=== PATIENT | female | born 1970 | race Caucasian/White ===

== ENCOUNTER 2017-12-13 12:46 | Emergency (ER) | payer BC ==
[~2017-12-13] VITALS: Ht 167.6 cm; Wt 127.9 kg
[~2017-12-13 12:46] MED LIST: ACETAMINOPHEN-1 EAC1 PO; CLEOCIN HCL150 MG PO; FUTURO RESTORI1 EACH MISCELL; IBUPROFEN 800800 M1 PO; NOLVADEX20 MG PO; SERTRALINE HCL50 MG PO; VITAMIN D2000 UNIT PO
[2017-12-13] MEDS ORDERED: ACETAMINOPHEN-1 EAC1 PO (13:51)
[2017-12-13] MEDS ORDERED: IBUPROFEN 800800 M1 PO (13:52)
[2017-12-13 14:05] VITALS: BP 138/88
== END 2017-12-13 14:06 | disposition home or self-care (01) ==
LOC: M.ERS 12:46
DX: M25.532 Pain in left wrist (principal); M86.9 Osteomyelitis, unspecified; Z85.3 Personal history of malignant neoplasm of breast; Z88.1 Allergy status to other antibiotic agents; Z88.0 Allergy status to penicillin

== ENCOUNTER 2018-09-29 09:22 | Emergency (ER) | payer BC ==
[~2018-09-29] VITALS: Ht 167.6 cm; Wt 113.4 kg
[2018-09-29] MEDS ORDERED: HYDRALAZINE 2525 MG PO (09:31)
[2018-09-29] MEDS ORDERED: TORADOL 10 MG T10 MG PO (09:59)
[2018-09-29] MEDS ORDERED: VALIUM5 MG PO (09:59)
[2018-09-29] MEDS ORDERED: NORCO 5-325 TA1 EACH PO (09:59)
[2018-09-29] MEDS ORDERED: IBUPROFEN 800800 MG PO (10:06)
[2018-09-29] MEDS ORDERED: ACETAMINOPHEN-1 EAC1 PO (10:18)
[2018-09-29 10:24] VITALS: BP 120/84
== END 2018-09-29 10:24 | disposition home or self-care (01) ==
LOC: M.ERS 09:22
DX: S39.012A Strain of muscle, fascia and tendon of lower back, initial encounter (principal); Z85.3 Personal history of malignant neoplasm of breast; Z90.710 Acquired absence of both cervix and uterus; F17.200 Nicotine dependence, unspecified, uncomplicated; Z88.0 Allergy status to penicillin; Z88.8 Allergy status to other drugs, medicaments and biological substances; X58.XXXA Exposure to other specified factors, initial encounter; Y93.89 Activity, other specified; Y92.89 Other specified places as the place of occurrence of the external cause; Y99.8 Other external cause status

== ENCOUNTER 2019-01-27 15:27 | Emergency (ER) | payer BC ==
[~2019-01-27] VITALS: Ht 172.7 cm; Wt 118.4 kg
[~2019-01-27 15:27] MED LIST changes: +HYDRALAZINE 2525 MG PO; +IBUPROFEN 800800 MG PO; +NORCO 5-325 TA1 EACH PO; +TORADOL 10 MG T10 MG PO; +VALIUM5 MG PO
[2019-01-27] MEDS ORDERED: LASIX 20 MG TAB20 MG PO (15:42)
[2019-01-27] MEDS ORDERED: ACETAMINOPHEN-1 EAC1 PO (15:46)
[2019-01-27 16:06] VITALS: BP 118/80
== END 2019-01-27 16:06 | disposition home or self-care (01) ==
LOC: M.ERS 15:27
DX: M17.0 Bilateral primary osteoarthritis of knee (principal); F17.200 Nicotine dependence, unspecified, uncomplicated; Z88.1 Allergy status to other antibiotic agents; Z88.0 Allergy status to penicillin; Z88.8 Allergy status to other drugs, medicaments and biological substances; Z85.3 Personal history of malignant neoplasm of breast; Z90.710 Acquired absence of both cervix and uterus; Z90.12 Acquired absence of left breast and nipple

== ENCOUNTER 2020-08-15 09:41 | Emergency (ER) | payer BC ==
[~2020-08-15] VITALS: Ht 165.1 cm; Wt 127.9 kg
[~2020-08-15 09:41] MED LIST changes: +LASIX 20 MG TAB20 MG PO
[2020-08-15] MEDS ORDERED: NEURONTIN100 MG PO (09:54)
[2020-08-15] MEDS ORDERED: [UNRECOGNIZED DRUG - REMARK] PO (09:54)
[2020-08-15] MEDS ORDERED: APAP W/CODEINE1 TA2 PO (11:15)
[2020-08-15 11:32] VITALS: BP 149/80
== END 2020-08-15 11:33 | disposition home or self-care (01) ==
LOC: M.ERS 09:41
DX: S93.692A Other sprain of left foot, initial encounter (principal); F17.210 Nicotine dependence, cigarettes, uncomplicated; Z98.51 Tubal ligation status; Z90.710 Acquired absence of both cervix and uterus; Z85.3 Personal history of malignant neoplasm of breast; Z88.1 Allergy status to other antibiotic agents; Z88.0 Allergy status to penicillin; Z88.8 Allergy status to other drugs, medicaments and biological substances; W11.XXXA Fall on and from ladder, initial encounter; Y93.89 Activity, other specified; Y92.89 Other specified places as the place of occurrence of the external cause; Y99.8 Other external cause status

== ENCOUNTER 2021-05-17 14:58 | Emergency (ER) | payer BC ==
[~2021-05-17] VITALS: Ht 165.1 cm; Wt 120.2 kg
[~2021-05-17 14:58] MED LIST changes: +APAP W/CODEINE1 TA2 PO; +NEURONTIN100 MG PO; +[UNRECOGNIZED DRUG - REMARK] PO
[2021-05-17] MEDS ORDERED: MOBIC7.5 MG PO (15:07)
[2021-05-17 16:48] VITALS: BP 154/72
[2021-05-17] MEDS ORDERED: APAP W/CODEINE1 TA2 PO ×2 (17:53→17:55)
== END 2021-05-17 16:49 | disposition home or self-care (01) ==
LOC: M.ERS 14:58
DX: S93.602A Unspecified sprain of left foot, initial encounter (principal); Z90.711 Acquired absence of uterus with remaining cervical stump; Z98.51 Tubal ligation status; Z85.3 Personal history of malignant neoplasm of breast; Z79.899 Other long term (current) drug therapy; Z88.1 Allergy status to other antibiotic agents; Z88.8 Allergy status to other drugs, medicaments and biological substances; Z88.0 Allergy status to penicillin; W17.89XA Other fall from one level to another, initial encounter; Y93.89 Activity, other specified; Y92.89 Other specified places as the place of occurrence of the external cause; Y99.8 Other external cause status